=== PATIENT | female | born 1990 | race Caucasian/White ===

== ENCOUNTER 2016-05-27 15:20 | Outpatient (CLI) | payer OTHER | END 2016-05-27 15:21 | disposition home or self-care (01) | DX: N92.0 Excessive and frequent menstruation with regular cycle (principal); N85.4 Malposition of uterus ==

== ENCOUNTER 2017-01-08 14:10 | Outpatient (CLI) | payer OTHER | END 2017-01-08 14:11 | disposition home or self-care (01) | LOC: LAB.R 14:10 | PROVIDERS: ATTEND Family Medicine | DX: N39.0 Urinary tract infection, site not specified (principal) | CPT/HCPCS: 87086 ==

== ENCOUNTER 2017-07-25 04:31 | Emergency (ER) | payer BC, OTHER ==
--- NOTE | 2017-07-25 05:08 | XRAY Preliminary Report ---
Exam: XR CHEST 1 VIEW X-RAY IMPRESSION: 1. No acute abnormality seen in the chest. [facility] SITE ID: [id number]
--- NOTE | 2017-07-25 05:09 | XRAY Report ---
EXAM: CHEST RADIOGRAPHY EXAM DATE: 07/25/2017 04:54 AM. CLINICAL HISTORY: Chest pain. COMPARISON: None. TECHNIQUE: 1 view. FINDINGS: Lungs/Pleura: No alveolar consolidation or pleural effusion seen. No pneumothorax. Mediastinum: Within exam limitations, the cardiomediastinal contour is normal. Other: None. IMPRESSION: 1. No acute abnormality seen in the chest. [facility] Referring Provider Line: [phone] SITE ID: [id number]
--- NOTE | 2017-07-25 05:17 | ED Physician Documentation ---
PD HPI CHEST PAIN - Stated complaint Stated Complaint: CHEST PAINS - Chief complaint Chief Complaint: Cardiac - History obtained from History obtained from: Patient, Family - History of Present Illness Timing - onset: Yesterday Timing - onset during: Rest Timing - details: Abrupt onset, Intermittant Quality: Pressure, Sharp Location: Substernal Worsened by: No: Exertion, Inspiration, Movement, Position Associated symptoms: No: Shortness of air, Diaphoresis, Nausea Similar symptoms before: Has not had sx before Recently seen: Not recently seen - Additional information Additional information: Patient is a 27 year old female with no significant past medical history who is presenting to the emergency department for chest pain. patient states that the pain is substernal and sharp in nature. patient states that it started yesterday when she was at work. patient denies any aggravating or alleviating factors and denies any exertional component to the pain. patient denies any family history of early cardiac disease or history of clots. Review of Systems Constitutional: denies: Fever, Chills Eyes: reports: Reviewed and negative Ears: reports: Reviewed and negative Nose: reports: Reviewed and negative Throat: denies: Dental pain / toothache, Sore throat Cardiac: reports: Chest pain / pressure. denies: Palpitations, Calf pain Respiratory: denies: Dyspnea, Cough, Wheezing GI: denies: Nausea, Vomiting : reports: Reviewed and negative Musculoskeletal: denies: Back pain Neurologic: reports: Reviewed and negative Immunocompromised: denies: Immunocompromised PD PAST MEDICAL HISTORY - Past Medical History Respiratory: Asthma - Past Surgical History Past Surgical History: No - Present Medications Home Medications: Ambulatory Orders Medication Instructions Recorded Confirmed No Known Home Medications [No 07/25/17 07/25/17 Known Home Medications] - Allergies Allergies/Adverse Reactions: Allergies Allergy/AdvReac Type Severity Reaction Status Date / Time Penicillins Allergy Hives Verified 07/25/17 04:38 - Social History Does the pt smoke?: No Smoking Status: Never smoker Does the pt drink ETOH?: Yes Does the pt have substance abuse?: No - POLST Patient has POLST: No PD ED PE NORMAL - Vitals Vital signs reviewed: Yes - General General: Alert and oriented X 3, No acute distress, Well developed/nourished - HEENT HEENT: Atraumatic, PERRL - Neck Neck: Supple, no meningeal sign, No JVD - Cardiac Cardiac: RRR, No murmur - Respiratory Respiratory: No respiratory distress - Abdomen Abdomen: Soft, Non tender, Non distended - Derm Derm: Normal color, Warm and dry, No rash - Extremities Extremities: No deformity, No calf tenderness / cord - Neuro Neuro: Alert and oriented X 3, No motor deficit Eye Opening: Spontaneous Results - Vitals Vitals: Vital Signs - 24 hr 07/25/17 04:37 Temperature 36.1 C L Heart Rate 99 Respiratory 18 Rate Blood Pressure 132/89 H O2 Saturation 99 Oxygen O2 Source Room air - EKG (time done) 0441 Rate: Rate (enter#) (80) Rhythm: NSR [place]: Normal Intervals: Normal UT QRS: Normal Ischemia: Normal ST segments Compare to prior EKG: Old EKG unavailable Computer interpretation: Disagree with computer - Labs Labs: Laboratory Tests 07/25/17 04:57 Troponin I < 0.04 - Rads (name of study) chest x-ray Radiology: Final report received (normal) PD MEDICAL DECISION MAKING - ED course Complexity details: reviewed old records, reviewed results, re-evaluated patient , considered differential, d/w patient, d/w family ED course: Patient was seen and examined at bedside. patient was well appearing and in no distress. ekg was performed and was normal sinus. chest x-ray was within normal limits as well as troponin. patient's PERC score was 0 and HEART score was 1. Patient was treated with pepcid, maalox and viscous lidocaine. patient required no further work up and was stable for discharge with outpatient follow up. Departure - Departure Disposition: 01 Home, Self Care Clinical Impression: Gastroesophageal reflux disease Condition: Good Instructions: GERD Dc, Antacids Follow-Up: primary,care provider [Other] - Within 3 Days Comments: Your diagnostics today were within normal limits. Your pain is unlikely cardiac in nature. You were treated with three different medications for acid reflux. You can try maalox if the symptoms return. You should follow up with your doctor this week for re-evaluation. You may return to the emergency department at any time for new, worsening or uncontrollable symptoms.
[2017-07-25] MEDS ORDERED: MAG HYDROX/AL HYDROX/SIMETH 30 ML UDC PO STA (05:20)
[2017-07-25] MEDS ORDERED: FAMOTIDINE 20 MG TABLET PO STA (05:20)
[2017-07-25] MEDS ORDERED: LIDOCAINE VISCOUS 2% 15 ML UDC MM STA (05:21)
[2017-07-25 05:26] VITALS: BP 118/67
== END 2017-07-25 05:30 | disposition home or self-care (01) ==
LOC: ED 04:31
DX: K21.9 Gastro-esophageal reflux disease without esophagitis (principal)
CPT/HCPCS: 36415; 71045; 84484; 93005; 99283; 99284; A9270

== ENCOUNTER 2018-03-28 08:00 | Outpatient (CLI) | payer BC | END 2018-03-28 23:59 | disposition home or self-care (01) | LOC: LAB.R 08:00 | PROVIDERS: ATTEND Nurse Practitioner | DX: R10.2 Pelvic and perineal pain (principal) | CPT/HCPCS: 87480; 87510; 87660 ==

== ENCOUNTER 2018-06-27 08:00 | Outpatient (CLI) | payer BC ==
[2018-06-27 19:05] LABS: BASOPHILS # (AUTO) 0.1 10^3/uL (0.0-0.1); BASOPHILS % (AUTO) 0.9 %; EOSINOPHILS # (AUTO) 0.2 10^3/uL (0.0-0.7); EOSINOPHILS % (AUTO) 2.9 %; LYMPHOCYTES # (AUTO) 1.9 10^3/uL (1.5-3.5); LYMPHOCYTES % (AUTO) 25.6 %; MEAN CORPUSCULAR HEMOGLOBIN 28.6 pg (27.0-31.0); MEAN CORPUSCULAR HGB CONC 33.9 g/dL (32.0-36.0); MEAN CORPUSCULAR VOLUME 84.4 fL (81.0-99.0); MEAN PLATELET VOLUME 7.8 fL (7.9-10.8); MONOCYTES # (AUTO) 0.4 10^3/uL (0.0-1.0); MONOCYTES % (AUTO) 5.6 %; NEUTROPHILS # (AUTO) 4.7 10^3/uL (1.5-6.6); PLT - PLATELET COUNT 270 10^3/uL (130-450); RED BLOOD COUNT 4.89 10^6/uL (4.20-5.40); RED CELL DISTRIBUTION WIDTH 13.5 % (12.0-15.0); WHITE BLOOD COUNT 7.2 x10^3/uL (4.8-10.8)
== END 2018-06-27 23:59 | disposition home or self-care (01) ==
LOC: LAB.WCP 08:00
PROVIDERS: ATTEND Family Medicine
DX: F32.9 Major depressive disorder, single episode, unspecified (principal); F41.9 Anxiety disorder, unspecified
CPT/HCPCS: 36415; 84443; 85025

== ENCOUNTER 2019-07-14 16:45 | Outpatient (CLI) | payer BC | END 2019-07-14 16:46 | disposition home or self-care (01) | LOC: COV 16:45 | PROVIDERS: ATTEND Family Medicine | DX: R05 Cough (principal); R50.9 Fever, unspecified | CPT/HCPCS: 81599 ==

== ENCOUNTER 2019-08-25 08:30 | Outpatient (CLI) | payer BC, OTHER ==
--- NOTE | 2019-08-26 09:30 | Ultrasound Report ---
Reason: TEST POSITIVE Procedure Date: 08/25/2019 Accession Number: [id number] / [id number] Procedure: US - OB First Trimester CPT Code: Final Report FULL RESULT: EXAM: FIRST TRIMESTER OBSTETRIC ULTRASOUND (Less than 11 weeks) EXAM DATE: 08/25/2019 09:33 AM. CLINICAL HISTORY: test positive. LMP: 07/01/2019. COMPARISONS: None. TECHNIQUE: Transabdominal and transvaginal ultrasound examination with static image documentation. CLINICAL DATES: EGA 7 weeks, 6 days with MAGDY 04/06/2020 based on LMP. ASSESSMENT: Gestational Sac: Single intrauterine. Mean gestational sac diameter: 21.8 mm = 7 weeks, 1 day. Embryo: CRL (crown-rump length) 3.5 mm = 6 weeks, 0 days. Cardiac activity: 121 beats per minute. Yolk sac: 3.2 mm. Amniotic fluid: Not accurately assessed at this gestational age. Early placenta: Not visible at this gestational age. Other: No perigestational fluid collection demonstrated. MATERNAL STRUCTURES: Uterus: Anteverted. Unremarkable. Cervix: Closed. Right Ovary/Adnexa: The ovary measures 2.9 x 2.2 x 1.9 cm, volume 6.3 cc. Unremarkable. Left Ovary/Adnexa: Left ovary is nonvisualized which may be due to size or position. Left adnexa is unremarkable. Free Fluid: Trace pelvic free fluid. Other: None. IMPRESSION: 1. Single viable intrauterine at EGA 6 weeks, 0 days with MAGDY 04/19/2020 based on crown-rump length, which is discrepant with clinical dates of 7 weeks, 6 days based on LMP. 2. Assigned dating is MAGDY 04/06/2020 based on reported LMP. KATEY
== END 2019-08-25 08:31 | disposition home or self-care (01) ==
LOC: DI 08:30
PROVIDERS: ATTEND Advanced Practice Midwife
DX: Z32.01 Encounter for pregnancy test, result positive (principal)
CPT/HCPCS: 76801; 76817

== ENCOUNTER 2019-09-09 08:00 | Outpatient (CLI) | payer BC ==
[2019-09-09 13:51] LABS: MUDS CUTOFF CONCENTRATIONS CUTOFF CONC BELOW:
[2019-09-09 14:06] LABS: BILIRUBIN,URINE NEGATIVE (NEGATIVE); GLUCOSE, URINE (UA) NEGATIVE (NEGATIVE); KETONES,URINE (UA) NEGATIVE (NEGATIVE); LEUKOCYTE ESTERASE, URINE SMALL (NEGATIVE); NITRITE,URINE NEGATIVE (NEGATIVE); OCCULT BLOOD,URINE NEGATIVE (NEGATIVE); PROTEIN,URINE NEGATIVE (NEGATIVE); UROBILINOGEN,URINE 0.2 (NORMAL) E.U./dL (NORMAL)
[2019-09-09 14:14] LABS: CLARITY,URINE CLOUDY (CLEAR)
[2019-09-09 14:18] LABS: BACTERIA,URINE Moderate /HPF (None Seen); RBC,URINE 0-5 /HPF (0-5); SQUAMOUS EPITHELIAL CELL,UR MOD Squamous (<= Few)
[2019-09-09 14:19] LABS: AMPHETAMINE SCREEN,URINE NEGATIVE (NEGATIVE); BENZODIAZEPINES SCREEN, URINE NEGATIVE (NEGATIVE); COCAINE SCREEN URINE NEGATIVE (NEGATIVE); METHADONE SCREEN, URINE NEGATIVE (NEGATIVE); METHAMPHETAMINES SCREEN, URINE NEGATIVE (NEGATIVE); OPIATE SCREEN, URINE NEGATIVE (NEGATIVE); OXYCODONE SCREEN, URINE NEGATIVE (NEGATIVE); PROPOXYPHENE SCREEN, URINE NEGATIVE (NEGATIVE); TRICYCLIC ANTIDEPRESSANT,URINE NEGATIVE (NEGATIVE)
[2019-09-09 18:52] LABS: TRICHOMONAS VAGINALIS DNA NEGATIVE (NEGATIVE)
== END 2019-09-09 23:59 | disposition home or self-care (01) ==
LOC: LAB.R 08:00
PROVIDERS: ATTEND Advanced Practice Midwife
DX: Z34.90 Encounter for supervision of normal pregnancy, unspecified, unspecified trimester (principal)
CPT/HCPCS: 80306; 81001; 87086; 87491; 87591; 87661

== ENCOUNTER 2019-10-07 17:44 | Outpatient (CLI) | payer BC ==
[2019-10-07 18:38] LABS: BASOPHILS % (AUTO) 0.4 %; EOSINOPHILS # (AUTO) 0.1 10^3/uL (0.0-0.7); EOSINOPHILS % (AUTO) 1.4 %; HGB - HEMOGLOBIN 13.4 g/dL (12.0-16.0); LYMPHOCYTES # (AUTO) 1.6 10^3/uL (1.5-3.5); LYMPHOCYTES % (AUTO) 19.6 %; MEAN CORPUSCULAR HEMOGLOBIN 29.2 pg (27.0-31.0); MEAN CORPUSCULAR HGB CONC 34.7 g/dL (32.0-36.0); MEAN CORPUSCULAR VOLUME 84.1 fL (81.0-99.0); MONOCYTES # (AUTO) 0.4 10^3/uL (0.0-1.0); NEUTROPHILS # (AUTO) 6.1 10^3/uL (1.5-6.6); NEUTROPHILS % (AUTO) 73.1 %; PLT - PLATELET COUNT 211 10^3/uL (130-450); RED BLOOD COUNT 4.59 10^6/uL (4.20-5.40); RED CELL DISTRIBUTION WIDTH 13.2 % (12.0-15.0); WHITE BLOOD COUNT 8.3 x10^3/uL (4.8-10.8)
[2019-10-09 12:59] LABS: HEPATITIS B SURFACE ANTIGEN NON-REACTIVE (NON-REACTIVE); HEPATITIS C ANTIBODY NON-REACTIVE (NON-REACTIVE)
[2019-10-09 13:13] LABS: HIV AG/AB 4TH GEN NON-REACTIVE (NON-REACTIVE)
== END 2019-10-07 17:45 | disposition home or self-care (01) ==
LOC: LAB 17:44
PROVIDERS: ATTEND Advanced Practice Midwife
DX: Z34.90 Encounter for supervision of normal pregnancy, unspecified, unspecified trimester (principal)
CPT/HCPCS: 36415; 81599; 82105; 85025; 86592; 86762; 86803; 86850; 86900; 86901; 87340; 87389

== ENCOUNTER 2022-07-11 09:00 | Emergency (ER) | payer BC, OTHER ==
[2022-07-11] MEDS ORDERED: SODIUM CHLORIDE 0.9% 1,000 ML IV STA (09:18)
[2022-07-11 09:40] LABS: BASOPHILS # (AUTO) 0.1 10^3/uL (0.0-0.1); BASOPHILS % (AUTO) 1.1 %; EOSINOPHILS # (AUTO) 0.3 10^3/uL (0.0-0.7); EOSINOPHILS % (AUTO) 6.3 %; HCT - HEMATOCRIT 40.2 % (37.0-47.0); HGB - HEMOGLOBIN 12.5 g/dL (12.0-16.0); LYMPHOCYTES # (AUTO) 1.2 10^3/uL (1.5-3.5); LYMPHOCYTES % (AUTO) 28.1 %; MEAN CORPUSCULAR HEMOGLOBIN 24.5 pg (27.0-31.0); MEAN CORPUSCULAR HGB CONC 31.1 g/dL (32.0-36.0); MEAN CORPUSCULAR VOLUME 78.8 fL (81.0-99.0); MEAN PLATELET VOLUME 9.2 fL (7.9-10.8); MONOCYTES # (AUTO) 0.2 10^3/uL (0.0-1.0); MONOCYTES % (AUTO) 5.4 %; NEUTROPHILS # (AUTO) 2.6 10^3/uL (1.5-6.6); NEUTROPHILS % (AUTO) 58.9 %; PLT - PLATELET COUNT 221 10^3/uL (130-450); WHITE BLOOD COUNT 4.4 x10^3/uL (4.8-10.8)
[2022-07-11 09:55] LABS: ALBUMIN/GLOBULIN RATIO 1.2 (1.0-2.2); BILIRUBIN,TOTAL 0.5 mg/dL (0.2-1.0); CREATININE 0.9 mg/dL (0.4-1.0); TOTAL PROTEIN 7.4 g/dL (6.7-8.2)
--- NOTE | 2022-07-11 11:46 | ED Physician Documentation ---
PD HPI GI BLEED - Stated complaint Stated Complaint: STOMACH PX - Chief complaint Chief Complaint: Abd Pain - History obtained from History obtained from: Patient - Additional information Additional information: The patient comes to the emergency department chief complaint of bright red blood per rectum for 2 months. She states it happens when she has a bowel movement and also, even sometimes if she sits down on the toilet to urinate. She states that she had a baby 6 months ago and has had some heartburn and epigastric pain since then, as well. She did also have some hemorrhoids and anal fissures while she was , though she has not felt any hemorrhoids when she is washing recently. The patient states that she thought about getting a primary care physician but that they said it would be a 3-month wait to be seen, so she just did not make the appointment. Instead, she has decided to come here.The patient states she intermittently feels a little lightheaded, and was concerned that the bleeding was responsible for this. She denies any abdominal pain, other than the epigastric burning. No fever or chills. No nausea or vomiting. She is otherwise fairly healthy. PD PAST MEDICAL HISTORY - Past Medical History Respiratory: Asthma - Past Surgical History Past Surgical History: No - Present Medications Home Medications: Ambulatory Orders Medication Instructions Recorded Confirmed No Known Home Medications 07/25/17 07/25/17 - Allergies Allergies/Adverse Reactions: Allergies Allergy/AdvReac Type Severity Reaction Status Date / Time amoxicillin Allergy Hives Verified 07/11/22 09:13 Penicillins Allergy Hives Verified 07/11/22 09:13 Sulfa (Sulfonamide Allergy Hives Verified 07/11/22 09:13 Antibiotics) - Social History Does the pt smoke?: No Smoking Status: Never smoker Does the pt drink ETOH?: Yes Does the pt have substance abuse?: No - POLST Patient has POLST: No PD ED PE NORMAL - Vitals Vital signs reviewed: Yes - General General: Alert and oriented X 3, No acute distress, Well developed/nourished - HEENT HEENT: Atraumatic, PERRL, EOMI, Moist mucous membranes - Neck Neck: Supple, no meningeal sign - Cardiac Cardiac: RRR, No murmur, Strong equal pulses - Respiratory Respiratory: No respiratory distress, Clear bilaterally - Abdomen Abdomen: Soft, Non tender, Non distended - Rectal Rectal: Other (Normal external rectal exam. No external hemorrhoids or trauma. No masses on digital rectal exam. Good anal tone. No gross blood.) - Derm Derm: Normal color, Warm and dry, No rash - Extremities Extremities: No deformity - Neuro Neuro: Alert and oriented X 3 - Psych Psych: Normal mood, Normal affect Results - Vitals Vitals: Vital Signs - 24 hr 07/11/22 09:08 Temperature 37.0 C Heart Rate 68 Respiratory 16 Rate Blood Pressure 123/77 O2 Saturation 100 Oxygen O2 Source Room air - Labs Labs: Laboratory Tests 07/11/22 07/11/22 09:33 09:33 WBC 4.4 L RBC 5.10 Hgb 12.5 Hct 40.2 MCV 78.8 L MCH 24.5 L MCHC 31.1 L RDW 14.0 Plt Count 221 MPV 9.2 Neut # (Auto) 2.6 Lymph # (Auto) 1.2 L Worth # (Auto) 0.2 Eos # (Auto) 0.3 Baso # (Auto) 0.1 Absolute Nucleated RBC 0.00 Nucleated RBC % 0.0 Sodium 141 Potassium 4.0 Chloride 107 Carbon Dioxide 25 Anion Gap 9.0 BUN 13 Creatinine 0.9 Estimated GFR (MDRD) 73 L Glucose 107 H Calcium 9.0 Total Bilirubin 0.5 AST 29 ALT 30 Alkaline Phosphatase 96 Total Protein 7.4 Albumin 4.0 Globulin 3.4 Albumin/Globulin Ratio 1.2 Lipase 41 PD Medical Decision Making - ED course Complexity details: reviewed results, re-evaluated patient, considered differential, d/w patient ED course: I discussed with the patient that there is not much we can do, other than checking basic labs making sure the patient is not anemic, to work-up ongoing bright red blood per rectum. I discussed with the patient that it is very important that she establishes care with a primary care physician so that she can follow-up this issue and determine whether she needs to have a colonoscopy for the lower GI bleeding and possibly, endoscopy for her chronic epigastric burning. However, I really suspect that the patient just has an internal hemorrhoid that is bleeding whenever she sits on the toilet and especially if she has a bowel movement. She has no blood in her rectal vault and no other abdominal symptoms to raise concern for something more serious. I have discussed with her that even if there is a wait to be seen by primary care, she ought to make the appointment right away so that she can get established and have follow-up for chronic issues that we cannot solve in the emergency department. The patient has expressed understanding. Her laboratory studies are normal and she has no anemia whatsoever. Her abdominal exam is benign, as is her rectal exam, and she is stable for discharge home. We have discussed the need for follow-up and the usual indications for return. Departure - Departure Disposition: 01 Home, Self Care Clinical Impression: Bright red blood per rectum, Epigastric pain Condition: Stable Instructions: ED Abdominal Pain Female Non-Specific Abdominal Pain Comments: Your labs look good. There is no evidence of a more emergent cause of your symptoms. It is very important that you get established with primary care for this chronic problem. Most likely, you have an internal hemorrhoid that is bleeding but it is important to talk to your doctor about whether a colonoscopy would be a good follow-up test for you. Right now, there is no palpable tumor or any other abnormality on your exam. The worst possible cause of the bleeding Is the potential for colon cancer, though the likelihood of this is low, particularly because it seems that the bleeding is coming from just before your anal opening, and no tumors palpable. Unfortunately, CT scan is not good at picking out tumors in the early stages and direct visualization with the scope a nd biopsy is the main way this can be diagnosed. Again at this point in time, the overwhelming likelihood is that your bleeding is from a low internal hemorrhoid. However, please get follow-up with primary care for further evaluation and for establishment of general health care. No emergent condition has been identified at this time.
[2022-07-11 12:03] VITALS: BP 134/77
== END 2022-07-11 12:03 | disposition home or self-care (01) ==
LOC: ED 09:00
DX: K62.5 Hemorrhage of anus and rectum (principal); R10.13 Epigastric pain
CPT/HCPCS: 36415; 80053; 83690; 85025; 99283; 99284

== ENCOUNTER 2023-09-20 11:53 | Outpatient (CLI) | payer OTHER ==
[2023-09-20 12:14] LABS: BASOPHILS # (AUTO) 0.1 10^3/uL (0.0-0.1); BASOPHILS % (AUTO) 0.7 %; EOSINOPHILS # (AUTO) 0.6 10^3/uL (0.0-0.7); EOSINOPHILS % (AUTO) 8.4 %; HCT - HEMATOCRIT 42.2 % (37.0-47.0); HGB - HEMOGLOBIN 13.7 g/dL (12.0-16.0); LYMPHOCYTES # (AUTO) 1.6 10^3/uL (1.5-3.5); LYMPHOCYTES % (AUTO) 21.7 %; MEAN CORPUSCULAR HEMOGLOBIN 25.4 pg (27.0-31.0); MEAN CORPUSCULAR HGB CONC 32.5 g/dL (32.0-36.0); MEAN CORPUSCULAR VOLUME 78.3 fL (81.0-99.0); MEAN PLATELET VOLUME 9.1 fL (7.9-10.8); MONOCYTES # (AUTO) 0.4 10^3/uL (0.0-1.0); MONOCYTES % (AUTO) 5.9 %; NEUTROPHILS # (AUTO) 4.6 10^3/uL (1.5-6.6); PLT - PLATELET COUNT 262 10^3/uL (130-450); RED BLOOD COUNT 5.39 10^6/uL (4.20-5.40); RED CELL DISTRIBUTION WIDTH 14.8 % (12.0-15.0); WHITE BLOOD COUNT 7.3 x10^3/uL (4.8-10.8)
[2023-09-20 12:54] LABS: ALBUMIN 4.3 g/dL (3.2-5.5); ALBUMIN/GLOBULIN RATIO 1.8 (1.0-2.2); BILIRUBIN,TOTAL 0.7 mg/dL (0.2-1.0); CALCIUM 9.5 mg/dL (8.5-10.3); CREATININE 0.9 mg/dL (0.6-1.3); POTASSIUM 4.2 mmol/L (3.5-4.5); TOTAL PROTEIN 6.7 g/dL (6.4-8.9)
[2023-09-20 13:07] LABS: BILIRUBIN,URINE NEGATIVE (NEGATIVE); GLUCOSE, URINE (UA) NEGATIVE (NEGATIVE); KETONES,URINE (UA) NEGATIVE (NEGATIVE); LEUKOCYTE ESTERASE, URINE SMALL (NEGATIVE); NITRITE,URINE NEGATIVE (NEGATIVE); OCCULT BLOOD,URINE NEGATIVE (NEGATIVE); PH,URINE 5.5 PH (5.0-7.5); PROTEIN,URINE NEGATIVE (NEGATIVE); UROBILINOGEN,URINE 0.2 (NORMAL) E.U./dL (NORMAL)
[2023-09-20 13:36] LABS: BACTERIA,URINE Few /HPF (None Seen); CLARITY,URINE CLEAR (CLEAR); RBC,URINE 0-5 /HPF (0-5); SQUAMOUS EPITHELIAL CELL,UR MOD Squamous (<= Few)
== END 2023-09-20 11:54 | disposition home or self-care (01) ==
LOC: LAB 11:53
PROVIDERS: ATTEND Nurse Practitioner
DX: R10.11 Right upper quadrant pain (principal)
CPT/HCPCS: 36415; 80053; 81001; 82150; 83690; 85025; 87086

== ENCOUNTER 2023-12-20 11:07 | Day surgery (SDC) | payer OTHER ==
[2023-12-20] MEDS: LACTATED RINGERS 1,000 ML IV ONE ×2 (11:15→15:21)
[2023-12-20 11:44] LABS: HCG UR QUAL NEGATIVE
[2023-12-20] MEDS ORDERED: NALOXONE 0.4 MG/ML VIAL IVP PRN (12:57)
[2023-12-20] MEDS ORDERED: ePHEDrine 50 MG/ML VIAL IVP PRN (12:57)
[2023-12-20] MEDS ORDERED: ONDANSETRON 4 MG/2 ML VIAL IVP PRN ×2 (12:57→15:20)
[2023-12-20] MEDS ORDERED: MORPHINE 2 MG/ML CARPUJECT IVP PRN (12:57)
[2023-12-20] MEDS ORDERED: METOCLOPRAMIDE 10 MG/2 ML VIAL IVP PRN (12:57)
[2023-12-20] MEDS ORDERED: ATROPINE ABBOJECT 1 MG/10 ML SYRINGE IVP PRN (12:57)
--- NOTE | 2023-12-20 12:57 | ANESTHESIA ---
Pre-Anesthesia VS, & Labs - Diagnosis cholecystitis - Procedure laparoscopic cholecystectomy Vital Signs: Temp Pulse Resp BP Pulse Ox O2 Flow Rate 36.5 C 90 15 120/80 95 12/20/23 11:15 12/20/23 11:15 12/20/23 11:15 12/20/23 11:15 12/20/23 11:15 Height: 5 ft 10 in Weight (kg): 98 kg Body Mass Index: 30.9 BMI Classification: Obese - NPO >8 hours - Is Patient ?: No Home Medications and Allergies Home Medications: Ambulatory Orders Albuterol Sulfate [Proair Respiclick] 2 puffs PO Q4HR PRN 12/10/23 Valacyclovir HCl [Valtrex] 1,000 mg PO DAILY PRN 12/10/23 Albuterol Sulfate [Proair Respiclick] 2 puffs PO Q4HR PRN 12/10/23 Valacyclovir HCl [Valtrex] 1,000 mg PO DAILY PRN 12/10/23 Allergies/Adverse Reactions: Allergies Allergy/AdvReac Type Severity Reaction Status Date / Time amoxicillin Allergy Hives Verified 07/11/22 09:13 Penicillins Allergy Hives Verified 07/11/22 09:13 Sulfa (Sulfonamide Allergy Hives Verified 07/11/22 09:13 Antibiotics) Anes History & Medical History - Anesthetic History Anesthesia Complications: reports: No previous complications - Medical History Cardiovascular: reports: None Pulmonary: reports: Asthma Gastrointestinal: reports: GERD Urinary: reports: None Musculoskeletal: reports: None Endocrine/Autoimmune: reports: None Skin: reports: Eczema Smoking Status: Never smoker - Surgical History General: reports: Colonoscopy Gynecologic: reports: section Exam General: Alert, Oriented x3 Dental: WNL Mouth Opening: Greater than 4 Fingerbreadths Neck Mobility: Normal Mallampati classification: II Thyromental Distance: greater than 6 cm Respiratory: Lungs clear Cardiovascular: Regular rate Plan Anesthesia Type: General Consent for Procedure(s) Verified and Reviewed: Yes Code Status: Attempt Resuscitation ASA classification: 2-Mild systemic disease Is this case an emergency?: No
[2023-12-20] MEDS ORDERED: LACTATED RINGERS 1,000 ML IV SCH (13:00)
[2023-12-20] MEDS ORDERED: MIDAZOLAM 2 MG/2 ML VIAL ONE (13:16)
[2023-12-20] MEDS ORDERED: PROPOFOL 200 MG/20 ML VIAL IVP ONE (13:16)
[2023-12-20] MEDS ORDERED: LIDOCAINE-PF 2% 10 ML AMP SUBQ ONE (13:16)
[2023-12-20] MEDS ORDERED: fentaNYL 100 MCG/2 ML VIAL ONE ×3 (13:16→15:31)
[2023-12-20] MEDS ORDERED: iohexoL-240 10 ML VIAL IVP ONE (13:17)
[2023-12-20] MEDS ORDERED: ROCURONIUM 50 MG/5 ML VIAL ONE (13:17)
[2023-12-20] MEDS ORDERED: BUPIVACAINE 0.25% PF 30 ML VIAL ONE (13:18)
--- NOTE | 2023-12-20 13:22 | HISTORY & PHYSICAL EXAMINATION ---
Chief Complaint - Chief Complaint Chief Complaint: intermittent rigth upper abdominal pain for many months History of Present Illness - History Obtained From Records Reviewed: yes History obtained from: pt Exam Limitations: none - History of Present Illness HPI Comment/Other: single 1 cm gallstone and classic gallbladder pain History - Past Medical History Cardiovascular: reports: None Respiratory: reports: Asthma Endocrine/Autoimmune: reports: None GI: reports: GERD : reports: None Psych: reports: Anxiety, Claustrophobia Musculoskeletal: reports: None Derm: reports: Eczema MRSA Hx?: No - Past Surgical History 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 - POLST Patient has POLST: No Meds/Allgy - Home Medications Home Medications: Ambulatory Orders Medication Instructions Recorded Confirmed Albuterol Sulfate [Proair 2 puffs PO Q4HR PRN 12/10/23 12/10/23 Respiclick] Valacyclovir HCl [Valtrex] 1,000 mg PO DAILY PRN 12/10/23 12/10/23 - Allergies Allergies/Adverse Reactions: Allergies Allergy/AdvReac Type Severity Reaction Status Date / Time amoxicillin Allergy Hives Verified 07/11/22 09:13 Penicillins Allergy Hives Verified 07/11/22 09:13 Sulfa (Sulfonamide Allergy Hives Verified 07/11/22 09:13 Antibiotics) Review of Systems - Other Findings Other Findings: 10 pt ros as above otherwise unremarkable Exam - Vital Signs Vital Signs: Vital Signs x48h Temp Pulse Resp BP Pulse Ox 12/20/23 11:15 36.5 C 90 15 120/80 95 - Physical Exam General Appearance: positive: No acute distress, Alert Eyes Bilateral: positive: PERRL, EOMI Neck: positive: No JVD, Trachea midline Respiratory: positive: No respiratory distress Cardiovascular: positive: Regular rate & rhythm Abdomen: positive: No distention Neurologic/Psychiatric: positive: Oriented x3 Conclusion/Plan - Problem List (1) Chronic cholecystitis Conclusion/Plan: plan iraj juan carlos. ana held and consent obtained
[2023-12-20] MEDS ORDERED: ceFAZolin 2 GM VIAL ONE (13:41)
[2023-12-20] MEDS ORDERED: ESMOLOL 100 MG/10 ML VIAL IVP ONE (13:45)
[2023-12-20] MEDS: BUPIVACAINE 0.25% PF 30 ML VIAL SUBQ ONE (14:02)
[2023-12-20] MEDS ORDERED: DEXAMETHASONE 4 MG/ML VIAL ONE (14:25)
[2023-12-20] MEDS ORDERED: SUGAMMADEX 200 MG/2 ML VIAL IVP ONE (14:40)
[2023-12-20] MEDS ORDERED: KETOROLAC 30 MG/ML VIAL ONE (14:40)
[2023-12-20] MEDS ORDERED: HYDROmorphone 0.5 MG/0.5 ML SYRINGE IVP PRN (15:20)
[2023-12-20] MEDS: HYDROmorphone 0.5 MG/0.5 ML SYRINGE IVP PRN (15:30)
[2023-12-20] MEDS: ONDANSETRON 4 MG/2 ML VIAL ONE (15:30)
[2023-12-20] MEDS ORDERED: HYDROmorphone 0.5 MG/0.5 ML SYRINGE ONE (15:31)
[2023-12-20] MEDS ORDERED: ONDANSETRON 4 MG/2 ML VIAL ONE (15:32)
--- NOTE | 2023-12-20 15:33 | OPERATIVE REPORT ---
Operative Report - General Procedure Date: 12/20/23 Planned Procedure: lap juan carlos Pre-Op Diagnosis: chronic cholecystitis Procedure Performed: lap juan carlos Post Op Diagnosis: chronic cholecystitis - Procedure Note Primary Surgeon: sonny young Anesthesia Technique: General ET tube, Local Pathology: gallbladder Estimated Blood Loss (mL): 3 Drain/Tube Type: Other (none) Indications: intermittent pain and 1 cm gallstone Findings: as above. distended gallbladder with significant scar tissue Complications: none - Other Other Information/Narrative: The patient was properly identified, brought to the operating room and placed in supine position. Sequential compression devices were placed. General endotracheal anesthesia was induced. The patient was prepped and draped in a sterile fashion and given preoperative antibiotics. Local anesthetic was given to incision areas. An incision was made in the periumbilical area. Dissection proceeded down to fascia. The fascia was incised lifted upwards and abdomen entered with a Veress needle. CO2 was insufflated to a pressure of 15. An 11 mm trocar followed by a 30 degree scope was placed. There was no evidence of injury from Veress needle or trocar placement. Under direct vision 2 5 mm trochars were placed in the right upper quadrant and an 11 mm trocar was placed in the epigastrium. Body of the gallbladder was retracted anterior. Lateral attachments were partially taken down further mobilizing the gallbladder more anterior and away from the duodenum. The infundibulum of the gallbladder was then retracted right lateral and caudad. With minimal use of cautery a large bare cystic plate area or window was carefully created. The cystic duct was inspected from right lateral and left lateral positions. [] The cystic duct was then clipped at the gallbladder and 3 times slightly proximal and sharply divided. The cystic artery was clipped at the gallbladder and then 2 times slightly proximal and sharply divided. The gallbladder was mobilized off from the bed of the liver with hook cautery. The gallbladder was placed in Endo Catch bag and brought out through the epigastric trocar site. Hemostasis was assured. Trochars were removed under direct vision. Fascia at the larger trocar sites was closed with [id number] are running 0 Vicryl suture. skin closed with interrupted 4-0 Monocryl. Dressings were applied. Patient tolerated the procedure well was awakened and brought to recovery in good condition.
[2023-12-20] MEDS: fentaNYL 100 MCG/2 ML VIAL IVP PRN (15:40)
[2023-12-20] MEDS ORDERED: oxyCODONE 5 MG TABLET ONE (16:09)
[2023-12-20] MEDS ORDERED: SCOPOLAMINE PATCH TOP ONE (16:12)
[2023-12-20] MEDS ORDERED: PROCHLORPERAZINE 10 MG/2 ML VIAL ONE (16:15)
[2023-12-20] MEDS: SCOPOLAMINE PATCH TOP SCH (16:20)
[2023-12-20] MEDS: PROCHLORPERAZINE 10 MG/2 ML VIAL IVP PRN (16:30)
[2023-12-20] MEDS: oxyCODONE 5 MG TABLET PO PRN (17:10)
[2023-12-20] MEDS: HYDROcod/ACETAM 5/325 MG TABLET PO PRN (19:23)
--- NOTE | 2023-12-20 20:19 | ANESTHESIA POST OP EVALUATION ---
Anesthesia Post Eval - Post Anesthesia Eval Vitals: Last Vital Signs Temp 36.6 C 12/20/23 20:00 Pulse 59 L 12/20/23 20:00 Resp 20 12/20/23 20:00 BP 111/72 12/20/23 20:00 Pulse Ox 96 12/20/23 20:00 O2 Flow Rate CV Function Including HR & BP: Stable Pain Control: Satisfactory Nausea & Vomiting: Negative Mental Status: Baseline Respiratory Status: Airway Patent Hydration Status: Satisfactory Anesthesia Complications: None
[2023-12-20 20:20] VITALS: BP 111/72; O2SAT 96
== END 2023-12-20 20:40 | disposition home or self-care (01) ==
LOC: SDS 11:07 → MS2 17:01 → SDS 20:40
PROVIDERS: ATTEND Surgery
PROC: 0FT44ZZ Resection of Gallbladder, Percutaneous Endoscopic Approach (ICD-10-PCS; principal; 2023-12-20 12:30)
DX: K80.10 Calculus of gallbladder with chronic cholecystitis without obstruction (principal); J45.909 Unspecified asthma, uncomplicated; E66.9 Obesity, unspecified; Z32.02 Encounter for pregnancy test, result negative; Z68.30 Body mass index [BMI] 30.0-30.9, adult
CPT/HCPCS: 47562; 81025; A9270; J1170; J3490; J7120; Q9966

== ENCOUNTER 2023-12-22 09:41 | Emergency (ER) | payer OTHER ==
[2023-12-22 10:51] LABS: BASOPHILS % (AUTO) 0.5 %; EOSINOPHILS # (AUTO) 0.2 10^3/uL (0.0-0.7); EOSINOPHILS % (AUTO) 2.8 %; HCT - HEMATOCRIT 35.7 % (37.0-47.0); HGB - HEMOGLOBIN 11.4 g/dL (12.0-16.0); LYMPHOCYTES % (AUTO) 32.2 %; MEAN CORPUSCULAR HEMOGLOBIN 25.7 pg (27.0-31.0); MEAN CORPUSCULAR HGB CONC 31.9 g/dL (32.0-36.0); MEAN CORPUSCULAR VOLUME 80.4 fL (81.0-99.0); MONOCYTES # (AUTO) 0.5 10^3/uL (0.0-1.0); MONOCYTES % (AUTO) 8.2 %; NEUTROPHILS # (AUTO) 3.4 10^3/uL (1.5-6.6); NEUTROPHILS % (AUTO) 55.8 %; PLT - PLATELET COUNT 186 10^3/uL (130-450); RED BLOOD COUNT 4.44 10^6/uL (4.20-5.40); RED CELL DISTRIBUTION WIDTH 13.9 % (12.0-15.0); WHITE BLOOD COUNT 6.1 x10^3/uL (4.8-10.8)
[2023-12-22] MEDS: ONDANSETRON 4 MG/2 ML VIAL IVP STA (11:02)
[2023-12-22] MEDS: SODIUM CHLORIDE 0.9% 1,000 ML IV STA (11:02)
[2023-12-22] MEDS: HYDROmorphone 1 MG/ML CARPUJECT IVP STA ×2 (11:02→13:15)
[2023-12-22 11:06] LABS: ALBUMIN 3.5 g/dL (3.2-5.5); ALBUMIN/GLOBULIN RATIO 1.4 (1.0-2.2); BILIRUBIN,TOTAL 0.5 mg/dL (0.2-1.0); CALCIUM 8.7 mg/dL (8.5-10.3); POTASSIUM 3.5 mmol/L (3.5-4.5)
--- NOTE | 2023-12-22 11:09 | ED Physician Documentation ---
History of Present Illness - Stated complaint Stated Complaint: POST SURG PX - Chief complaint Chief Complaint: General - History obtained from History obtained from: Patient - Additonal information Additional information: She is 2 days out from a lap juan carlos for chronic cholecystitis. She has had increasing right upper quadrant pain and some pleuritic chest pain with deep breathing as well. She has mild shortness of breath because of that. She had 1 small bowel movement in the interim. No fevers or chills. She feels like her periumbilical incision might be swollen. PD PAST MEDICAL HISTORY - Past Medical History Cardiovascular: None Respiratory: Asthma Endocrine/Autoimmune: None GI: GERD : None Psych: Anxiety, Claustrophobia Musculoskeletal: None Derm: Eczema - Past Surgical History Past Surgical History: No General: Cholecystectomy, Colonoscopy /[employer]ATIONS: section - Present Medications Home Medications: Ambulatory Orders Medication Instructions Recorded Confirmed Albuterol Sulfate [Proair 2 puffs PO Q4HR PRN 12/10/23 12/10/23 Respiclick] Valacyclovir HCl [Valtrex] 1,000 mg PO DAILY PRN 12/10/23 12/10/23 HYDROcod/ACETAM 5/325 [[place] 5/325] 1 each PO Q6H PRN #25 tablet 12/20/23 Ondansetron Odt [Zofran Odt] 4 mg PO Q6H PRN #15 tablet 12/20/23 Oxycodone HCl/Acetaminophen 1 - 2 each PO Q6H PRN #14 tablet 12/22/23 [Percocet 5-325 mg Tablet] - Allergies Allergies/Adverse Reactions: Allergies Allergy/AdvReac Type Severity Reaction Status Date / Time amoxicillin Allergy Hives Verified 12/22/23 09:48 Penicillins Allergy Hives Verified 12/22/23 09:48 Sulfa (Sulfonamide Allergy Hives Verified 12/22/23 09:48 Antibiotics) - Social History Does the pt smoke?: No Smoking Status: Never smoker Does the pt drink ETOH?: Yes Does the pt have substance abuse?: No - Immunizations Immunizations are current?: Yes - POLST Patient has POLST: No PD ED PE NORMAL - Vitals Vital signs reviewed: Yes - General General: Alert and oriented X 3, No acute distress - Cardiac Cardiac: RRR, No murmur - Respiratory Respiratory: No respiratory distress, Clear bilaterally - Abdomen Abdomen: Normal bowel sounds, Soft, Non tender, Other (Exquisitely tender in the right upper quadrant without surgical signs. Incisions are clean dry and intact.) - Neuro Neuro: Alert and oriented X 3 Results - Vitals Vitals: Vital Signs - 24 hr 12/22/23 12/22/23 09:48 10:15 Temperature 36.3 C L 36.9 C Heart Rate 86 79 Respiratory 16 16 Rate Blood Pressure 130/79 128/76 O2 Saturation 99 99 Oxygen O2 Source Room air - Labs Labs: Laboratory Tests 12/22/23 12/22/23 10:46 10:46 WBC 6.1 RBC 4.44 Hgb 11.4 L Hct 35.7 L MCV 80.4 L MCH 25.7 L MCHC 31.9 L RDW 13.9 Plt Count 186 MPV 9.0 Neut # (Auto) 3.4 Lymph # (Auto) 2.0 [place] # (Auto) 0.5 Eos # (Auto) 0.2 Baso # (Auto) 0.0 Absolute Nucleated RBC 0.00 Nucleated RBC % 0.0 Sodium 140 Potassium 3.5 Chloride 107 Carbon Dioxide 28 Anion Gap 5.0 L BUN 9 Creatinine 1.0 Estimated GFR (MDRD) 64 L Glucose 91 Calcium 8.7 Total Bilirubin 0.5 AST 37 ALT 41 Alkaline Phosphatase 79 Total Protein 6.0 L Albumin 3.5 Globulin 2.5 Albumin/Globulin Ratio 1.4 Lipase 25 - Rads (name of study) CT angiography of the chest is negative for acute disease. Relevant Findings:: Final report received, EMP independent interpretation of test CT of the abdomen pelvis demonstrates trace free air likely postoperative. No other abnormal findings. Relevant Findings:: Final report received, EMP independent interpretation of test PD Medical Decision Making - ED course ED course: She presents with concerns of increased pain and some incision concerns 2 days out from a lap juan carlos. She is tender, but workup demonstrates normal white count, normal liver enzymes, and CT including CTPA to rule out PE without acute concerning findings. Seen here by the surgeon, Dr. Moreno as well and okay for DC home. Departure - Departure Disposition: Home, Self Care Clinical Impression: Postoperative pain Condition: Good Record reviewed to determine appropriate education?: Yes Instructions: Cholecystectomy Laparoscopic Dc Prescriptions: Oxycodone HCl/Acetaminophen [Percocet 5-325 mg Tablet] 1 - 2 each PO Q6H PRN #14 tablet PRN Reason: pain Comments: I sent your prescription electronically to the [facility] in [place]. Return for new or worsening symptoms. Follow-up with the surgeon as scheduled. I am prescribing a short course of narcotic pain medication for you. These are potentially dangerous and addictive medications that should be used carefully. These medications may constipate you. Take an oxih-nxa-wixanoj stool softener (docusate) twice daily with plenty of water while taking these medications. If you go 24 hours without a bowel movement, take [id number]-[id number] miralax, per package instructions. Do not drink or drive while taking these medications. If you received narcotic or sedating medications while in the emergency department, do not drive for 24 hours. Store this medication in a safe, secure place and out of reach of children. It is a violation of federal law to give or sell this medication to another person or to use in a manner other than prescribed. The ED will not refill narcotic prescriptions, including prescriptions lost or stolen. To dispose of unwanted medications: 1. [facility] [employer] provides a drop box for medication in pill form only (no liquids) 8:00 am to 4:30 p.m. Sunday-Sunday in the lobby of the [facility] [place], [address] Empty pills into ziplock bag before disposal. Call [phone] for information. 2.[employer] is a free service available to all [facility] residents. Go to [email or web address] Note that many narcotic pain relievers also contain Tylenol/acetaminophen. Please ensure that your total dose of acetaminophen from all sources does not exceed 3 g (3000 mg) per day. Forms: PCP List
[2023-12-22] MEDS ORDERED: iohexoL-300 100 ML VIAL ONE (11:13)
--- NOTE | 2023-12-22 12:22 | CT Report ---
PROCEDURE: Angio Chest INDICATIONS: post op cp, pe protocol CONTRAST: 100 TECHNIQUE: After the administration of intravenous contrast, 2 mm axial images were acquired from the pulmonary apices to the posterior costophrenic angles during the arterial phase. In addition, 1 mm lung kernel and 5 mm soft tissue kernel reconstructions were performed. 3-dimensional coronal oblique maximum int ensity projection (MIP) reformats, 8 mm axial MIP, and 5 mm coronal and sagittal MPR reformats were t hen performed through the thorax. For radiation dose reduction, the following was used: automated exp osure control, adjustment of mA and/or kV according to patient size. COMPARISON: CTA chest on October 03, 2013. FINDINGS: Image quality: Excellent. Large vessels: Enhancement of the pulmonary arteries is adequate. No filling defects to the level of the proximal subsegmental pulmonary arteries. Main pulmonary artery is normal in caliber. Thoracic ao rta is normal in caliber. Lungs and pleura: Lung volumes are low. No consolidation. No pleural effusions. No pneumothorax. No suspicious pulmonary nodules which require follow up. Left lower lobe linear atelectasis/scar. Paten t central airways. Mediastinum: Heart size is normal. No pericardial effusion. No large vessel abnormality. No mediastin al adenopathy by size criteria. Chest wall and lower neck: Thyroid is unremarkable. No axillary or supraclavicular adenopathy by size . Bones: No aggressive osseous abnormality. Upper Abdomen: Please see same day CT abdomen and pelvis. IMPRESSION: 1.No acute pulmonary embolism to the level of the proximal subsegmental pulmonary arteries. Main pulm onary artery is normal in caliber. 2.Lung volumes are low. No acute cardiopulmonary process. Reviewed by: Meredith Pfeiffer MD on 12/22/2023 11:21 AM VERONICA Approved by: Meredith Pfeiffer MD on 12/22/2023 11:21 AM VERONICA Station ID: [id number]
--- NOTE | 2023-12-22 12:34 | CT Report ---
PROCEDURE: Abdomen/Pelvis W INDICATIONS: IV only, post op ruq pain CONTRAST: 100 TECHNIQUE: After the administration of intravenous contrast, a CT scan of the abdomen and pelvis was performed. Images were recorded and evaluated at appropriate window settings. Reformats: coronal and sagittal. F or radiation dose reduction, the following was used: automated exposure control, adjustment of mA and /or kV according to patient size. COMPARISON: None. FINDINGS: Image quality: Diagnostic. Lower chest: Please see same day CTA chest. Liver: No solid mass. Focal subcapsular fat along the falciform ligament. Gallbladder: Cholecystectomy. No fluid collection in the surgical bed. Biliary tree: No intrahepatic or extrahepatic dilation, accounting for age. Spleen: No splenomegaly. Pancreas: No pancreatic ductal dilation. Adrenals: No adrenal nodule. Kidneys and ureters: No hydronephrosis. No renal cystic lesion which requires follow up. No solid mas s. Stomach, bowel and peritoneum: No gastric or small bowel dilation. No abnormal wall thickening. No pa thologic free fluid. Trace right subdiaphragmatic free air. Trace simple pelvic free fluid. Lymph nodes: No central or retroperitoneal adenopathy. Vessels: No infrarenal aortic aneurysm. Patent portal vein. Retroaortic left renal vein, normal varia nt. PELVIS Reproductive organs: Unremarkable. Bladder: No abnormal wall thickening, accounting for underdistention. Pelvic lymph nodes: No pelvic adenopathy by size criteria. Bones: No aggressive osseous abnormality. Other: Soft tissue stranding in the right anterior abdominal wall with foci of subcutaneous air. No f luid collection (). Tiny fat-containing umbilical hernia. No inguinal hernia. IMPRESSION: 1.Cholecystectomy. No fluid collection in the surgical bed. Trace subdiaphragmatic free air, likely p ostoperative. 2.No acute pathology in the abdomen or pelvis. Reviewed by: Meredith Pfeiffer MD on 12/22/2023 11:32 AM VERONICA Approved by: Meredith Pfeiffer MD on 12/22/2023 11:32 AM VERONICA Station ID: [id number]
[2023-12-22] MEDS: KETOROLAC 15 MG/ML VIAL IVP STA (13:00)
[2023-12-22 13:18] VITALS: BP 124/76; O2SAT 98
--- NOTE | 2023-12-22 13:43 | CONSULTATION NOTE ---
Surgery Consult - Chief Complaint Chief Complaint: postop incisional pain - Home Meds/Allergies Home Medications: Patient History Medication Instructions Recorded Confirmed Albuterol Sulfate [Proair 2 puffs PO Q4HR PRN 12/10/23 12/10/23 Respiclick] Valacyclovir HCl [Valtrex] 1,000 mg PO DAILY PRN 12/10/23 12/10/23 Allergies/Adverse Reactions: Allergies Allergy/AdvReac Type Severity Reaction Status Date / Time amoxicillin Allergy Hives Verified 12/22/23 09:48 Penicillins Allergy Hives Verified 12/22/23 09:48 Sulfa (Sulfonamide Allergy Hives Verified 12/22/23 09:48 Antibiotics) - Vital Signs Vital Signs: Last Vital Signs Temp 36.9 C 12/22/23 10:15 Pulse 86 12/22/23 13:15 Resp 14 12/22/23 13:15 BP 124/76 12/22/23 13:15 Pulse Ox 98 12/22/23 13:15 O2 Flow Rate Intake & Output: Intake & Output 12/19/23 12/20/23 12/21/23 12/22/23 23:59 23:59 23:59 23:59 Intake Total 1000 Balance 1000 - Lab Results Result Diagrams: 12/22/23 10:46 12/22/23 10:46 - Consultation Note Consultation Note: 33yoF POD2 s/p iraj rangel. Called patient line this morning complaining of stabbing pain at two incisions that was worsening, with increasing swelling and redness around the incisions - I advised her to come to the ED For evaluation. In ED she states that her postop hydrocodone-acetaminophen is not helping her pain. She is PO tolerant, denies fevers. Describes soreness at incisions the same as above, as well as a sharp stabbing sensation on inspiration. ROS otherwise negative. HD normal/AF/on RA Physical Exam: WDWN female, NAD, AAOx3 NCAT, no JVD Lungs CTAB RRR Abdomen is soft, nondistended. Gauze and tegederm removed from two incisions leaving all 4 incisions with steristrips - umbilical incision has mild ecchymosis around it, other incisions are all CDI with no induration, erythema Ext: warm, no edema LABS: Normal WBC, normal BMP, normal lipase and LFTs CT abd/pel - unremarkable postop CT with no fluid collection in GB fossa, trace subdiaphragmatic free air c/w POD2 lap procedure, normal amount of subQ stranding at trocar sites with no fluid collection to suggest hematoma or abscess CTA - no PE A/P: 33yoF POD2 s/p laparoscopic cholecystectomy. Normal findings for postoperative status in ED. No e/o PE, surgical site infection, deep space infection or other intraabdominal complication. Physical exam and CT imaging both WNL, vital and labs normal. Reassurance provided to patient. - additional pain meds rx'd by ED - safe to DC home - keep routine f/u with operating surgeon Sury Moreno DO, FACS General Surgeon, Santhosh
[2023-12-22] MEDS: iohexoL-300 100 ML VIAL IVP ONE (15:54)
== END 2023-12-22 13:20 | disposition home or self-care (01) ==
LOC: ED 09:41
DX: G89.18 Other acute postprocedural pain (principal); J45.909 Unspecified asthma, uncomplicated; K21.9 Gastro-esophageal reflux disease without esophagitis; F41.9 Anxiety disorder, unspecified
CPT/HCPCS: 36415; 71275; 74177; 80053; 83690; 85025; 96374; 96375; 96376; 99284; J1170; Q9967